=== PATIENT | female | born 1970 | race Caucasian/White ===

== ENCOUNTER 2017-10-10 03:38 | Emergency (ER) | payer BC, OTHER ==
[2017-10-10 03:39] VITALS: BMI 24.7
--- NOTE | 2017-10-10 04:29 | ED PDOC ---
Arrival/HPI - General Chief Complaint: Abdominal Pain Time Seen by Provider: 10/10/17 04:05 Historian: Patient - History of Present Illness Narrative History of Present Illness (Text): 10/10/17 04:29 A 47 year old female, with no significant past medical history, presents to the emergency department complaining of right sided abdominal pain. The patient states that the pain began yesterday morning. It was an abrupt onset and not associated with nausea, vomiting, diarrhea . The patient states that she had a sandwich earlier in the day. The patient denies fevers, chills, headache, dizziness, chest pain, shortness of breath, dyspnea on exertion, cough, back pain, neck pain, urinary/bowel changes, or any other complaint. Time/Duration: Other (Yesterday morning) Symptom Onset: Sudden Symptom Course: Unchanged Activities at Onset: Rest, Light Context: Home Past Medical History - Provider Review Nursing Documentation Reviewed: Yes - Infectious Disease Hx of Infectious Diseases: None - Tetanus Immunization Tetanus Immunization: Up to Date - Past Medical History Past Medical History: No Previous - Cardiac Hx Cardiac Disorders: No Hx Hypertension: Yes - Pulmonary Hx Tuberculosis: No - Neurological HX Cerebrovascular Accident: No Hx Seizures: No - Hematological/Oncological Hx Cancer: No - Genitourinary/Gynecological Hx Sexually Transmitted Diseases: No - Psychiatric Hx Emotional Abuse: No Hx Physical Abuse: No Hx Substance Use: No - Past Surgical History Past Surgical History: Non-Contributing - Suicidal Assessment Feels Threatened In Home Enviroment: Yes Family/Social History - Physician Review Nursing Documentation Reviewed: Yes Family/Social History: No Known Family HX Smoking Status: Never Smoked Hx Alcohol Use: No Hx Substance Use: No Hx Substance Use Treatment: No Allergies/Home Meds Allergies/Adverse Reactions: Allergies No Known Allergies Allergy (Verified 10/10/17 03:55) Home Medications: Home Meds Medication Instructions Recorded Confirmed No Known Home Med 10/10/17 10/10/17 Review of Systems - Physician Review All systems were reviewed & negative as marked: Yes - Review of Systems Constitutional: absent: Fevers, Night Sweats Respiratory: absent: SOB, Cough Cardiovascular: absent: Chest Pain, DE JESUS Gastrointestinal: Abdominal Pain. absent: Stool Changes, Diarrhea, Nausea, Vomiting Genitourinary Female: absent: Urine Output Changes Musculoskeletal: absent: Back Pain, Neck Pain Neurological: absent: Headache, Dizziness Physical Exam Vital Signs Reviewed: Yes Vital Signs Temp Pulse Resp BP Pulse Ox 10/10/17 05:54 96 H 20 143/93 H 96 10/10/17 03:48 97.7 F 84 18 139/109 H 100 Temperature: Afebrile Blood Pressure: Hypertensive Pulse: Regular Respiratory Rate: Normal Appearance: Positive for: Well-Appearing, Non-Toxic, Comfortable Pain Distress: None Mental Status: Positive for: Alert and Oriented X 3 - Systems Exam Head: Present: Atraumatic, Normocephalic Pupils: Present: PERRL Extroacular Muscles: Present: EOMI Conjunctiva: Present: Normal Mouth: Present: Moist Mucous Membranes Neck: Present: Normal Range of Motion Respiratory/Chest: Present: Clear to Auscultation, Good Air Exchange. No: Respiratory Distress, Accessory Muscle Use Cardiovascular: Present: Regular Rate and Rhythm, Normal S1, S2. No: Murmurs Abdomen: Present: Tenderness (Abdomen soft. Tender to right upper and right lower abdomen. ). No: Distention, Peritoneal Signs Back: Present: Normal Inspection Upper Extremity: Present: Normal Inspection. No: Cyanosis, Edema Lower Extremity: Present: Normal Inspection. No: Edema Neurological: Present: GCS=15, CN II-XII Intact, Speech Normal Skin: Present: Warm, Dry, Normal Color. No: Rashes Psychiatric: Present: Alert, Oriented x 3, Normal Insight, Normal Concentration Medical Decision Making ED Course and Treatment: 10/10/17 04:33 Impression: A 47 year old female presents to the emergency department complaining of right sided abdominal pain since yesterday morning. Plan: -- Abdominal Ultrasound -- Urinalysis -- Labs -- IV Fluids and Toradol -- Reassess and disposition Progress Notes: 10/10/17 07:00 Case was endorsed to /pending CT Abd/Pelvis/reassess/final disposition - Lab Interpretations Lab Results: 10/10/17 04:22 10/10/17 04:22 Lab Results 10/10/17 04:22: WBC 15.9 H, RBC 4.43, Hgb 13.1, Hct 37.6, MCV 84.9, MCH 29.6, MCHC 34.8, RDW 13.0, Plt Count 259, MPV 10.8 10/10/17 04:22: Sodium 141, Potassium 3.5 L, Chloride 103, Carbon Dioxide 27, Anion Gap 14, BUN 12, Creatinine 0.7, Est GFR ( Amer) > 60, Est GFR (Non- Af Amer) > 60, Random Glucose 111 H, Calcium 9.6, Total Bilirubin 0.2, AST 20, ALT 20, Alkaline Phosphatase 38, Total Protein 7.6, Albumin 4.0, Globulin 3.6, Albumin/Globulin Ratio 1.1, Lipase 156 10/10/17 04:05: Urine Color Yellow, Urine Appearance Clear, Urine pH 6.0, Ur Specific [place] 1.025, Urine Protein Negative, Urine Glucose (UA) Negative, Urine Ketones Negative, Urine Blood Moderate H, Urine Nitrate Negative, Urine Bilirubin Negative, Urine Urobilinogen 0.2, Ur Leukocyte Esterase Negative, Urine RBC 1 - 3, Urine WBC 0 - 2, Ur Epithelial Cells 0 - 2, Urine Bacteria Rare I have reviewed the lab results: Yes - RAD Interpretation Narrative RAD Interpretations (Text): 10/10/17 06:45 Abdominal U/S IMPRESSION: No cholelithiasis or acute cholecystitis. Mild fullness of the right collecting system. CT of the abdomen and pelvis could be obtained for further evaluation. Radiology Orders: 10/10/17 04:21 ABDOMEN COMPLETE [US] Stat 10/10/17 06:46 ABD & PELVIS IV CONTRAST ONLY [CT] Stat Upholsterer Apprentice: Radiologist - Medication Orders Current Medication Orders: Discontinued Medications Sodium Chloride (Sodium Chloride 0.9%) 1,000 mls @ 999 mls/hr IV .Q1H1M STA Stop: 10/10/17 05:20 Last Admin: 10/10/17 05:49 Dose: 999 mls/hr eMAR Start Stop Document 10/10/17 05:49 KRISTEL (Rec: 10/10/17 05:49 KRISTEL [id number]) Intravenous Solution Start Date 10/10/17 Start Time 04:35 End Date 10/10/17 End time 05:45 Total Infusion Time 70 Ketorolac Tromethamine (Toradol) 30 mg IVP ONCE ONE Stop: 10/10/17 04:21 Last Admin: 10/10/17 04:36 Dose: 30 mg MAR Pain Assessment Document 10/10/17 04:36 IT (Rec: 10/10/17 04:36 IT [id number]) Pain Reassessment Is this a pain reassessment? No Sleep Is patient sleeping during reassessment? No Presence of Pain Presence of Pain Yes Pain Scale Used Pain Scale Used Numeric Location Left, Right or Bilateral Bilateral Pain Location Body Site Abdomen IVP Administration Document 10/10/17 04:36 IT (Rec: 10/10/17 04:36 IT [id number]) Charges for Administration # of IVP Administrations 1 Morphine Sulfate (Morphine) 2 mg IVP STAT STA Stop: 10/10/17 05:30 Last Admin: 10/10/17 05:48 Dose: 2 mg MAR Pain Assessment Document 10/10/17 05:48 KRISTEL (Rec: 10/10/17 05:48 KRISTEL [id number]) Pain Reassessment Is this a pain reassessment? Yes Sleep Is patient sleeping during reassessment? No Presence of Pain Presence of Pain Yes Location Upper or Lower Lower Pain Location Body Site Abdomen IVP Administration Document 10/10/17 05:48 KRISTEL (Rec: 10/10/17 05:48 KRISTEL [id number]) Charges for Administration # of IVP Administrations 1 - Scribe Statement The provider has reviewed the documentation as recorded by the Fredibmeseret Whalen Provider Scribe Attestation: All medical record entries made by the Scribe were at my direction and personally dictated by me. I have reviewed the chart and agree that the record accurately reflects my personal performance of the history, physical exam, medical decision making, and the department course for this patient. I have also personally directed, reviewed, and agree with the discharge instructions and disposition. Disposition/Present on Arrival - Present on Arrival Any Indicators Present on Arrival: No History of DVT/PE: No History of Uncontrolled Diabetes: No Urinary Catheter: No History of Decub. Ulcer: No History Surgical Site Infection Following: None - Disposition Have Diagnosis and Disposition been Completed?: No Diagnosis: Abdominal pain Disposition Time: 07:00 Condition: GOOD Forms: [employer] ([place])
[2017-10-10] MEDS: Sodium Chloride 0.9% 1,000 ML IV STA ×2 (04:36→05:49)
[2017-10-10 04:44] LABS: URINE BILIRUBIN NEGATIVE (NEGATIVE); URINE BLOOD MODERATE (NEGATIVE); URINE GLUCOSE (UA) NEGATIVE (NEGATIVE); URINE LEUKOCYTE ESTERASE NEGATIVE Leu/uL (NEGATIVE); URINE PROTEIN NEGATIVE mg/dL (<30 mg/dL); URINE UROBILINOGEN 0.2 E.U./dL (<1 E.U./dL)
[2017-10-10 04:46] LABS: HEMOGLOBIN 13.1 g/dL (12.0-16.0); MEAN CELL VOLUME 84.9 fl (80.0-105.0); MEAN CORPUSCULAR HEMOGLOBIN 29.6 pg (25.0-35.0); MEAN CORPUSCULAR HGB CONC 34.8 g/dl (31.0-37.0); MEAN PLATELET VOLUME 10.8 fl (7.0-11.0); RBC 4.43 10^6/uL (3.5-6.1); WHITE BLOOD COUNT 15.9 10^3/ul (4.5-11.0)
[2017-10-10 04:48] LABS: URINE APPEARANCE CLEAR (CLEAR); URINE COLOR YELLOW (YELLOW)
[2017-10-10 04:51] LABS: ALB/GLOB RATIO 1.1 (1.1-1.8); ALT/SGPT 20 U/L (7-56); AST/SGOT 20 U/L (14-36); BLOOD UREA NITROGEN 12 mg/dL (7-21); CALCIUM 9.6 mg/dL (8.4-10.5); GFR AFRICAN-AMERICAN > 60; GFR NON-AFRICAN AMERICAN > 60; LIPASE 156 U/L (23-300)
[2017-10-10 04:56] LABS: URINE BACTERIA RARE (NEG); URINE EPITHELIAL CELLS 0 - 2 /hpf (0-5); URINE WBC 0 - 2 /hpf (0-6)
--- NOTE | 2017-10-10 06:39 | US ---
EXAM: US Abdomen Complete CLINICAL HISTORY: 47 years old, female; Pain; Abdominal pain; Generalized; Additional info: Right sided abdominal pain TECHNIQUE: Real-time ultrasound of the abdomen (complete) with image documentation. COMPARISON: No relevant prior studies available. FINDINGS: Liver: Unremarkable. No mass. No intrahepatic bile duct dilation. Gallbladder: Unremarkable. No gallstones. Negative sonographic Valentine's sign. Normal gallbladder wall measuring 2 mm. Common bile duct: Unremarkable as visualized measuring 4 mm. No stones. No dilation. Pancreas: Unremarkable as visualized. The tail is not well-visualized. Kidneys: The right kidney measures 10.2 cm and the left kidney measures 11.8 cm. There is mild fullness of the right collecting system. No stones. No solid mass. Spleen: Unremarkable. No splenomegaly. Aorta: Unremarkable. No aneurysm. Inferior vena cava: Unremarkable. IMPRESSION: No cholelithiasis or acute cholecystitis. Mild fullness of the right collecting system. CT of the abdomen and pelvis could be obtained for further evaluation.
[2017-10-10] MEDS ORDERED: Iohexol 350 MG/100 ML VIAL ONE (06:58)
--- NOTE | 2017-10-10 07:06 | ED PDOC ---
Physical Exam Vital Signs Temp Pulse Resp BP Pulse Ox 10/10/17 05:54 96 H 20 143/93 H 96 10/10/17 03:48 97.7 F 84 18 139/109 H 100 Medical Decision Making ED Course and Treatment: 10/10/17 07:00 Case signed out to me by Dr. Escobar. Patient is a 47 year old female, with no significant past medical history, who presents to the emergency department complaining of right sided abdominal pain since one day ago. Currently pending CT scan. 10/10/17 07:55 CT abdomen and pelvis: FINDINGS: Liver: Unremarkable. No mass. No intrahepatic bile duct dilation. Gallbladder: Unremarkable. No gallstones. Negative sonographic Valentine's sign. Normal gallbladder wall measuring 2 mm. Common bile duct: Unremarkable as visualized measuring 4 mm. No stones. No dilation. Pancreas: Unremarkable as visualized. The tail is not well-visualized. Kidneys: The right kidney measures 10.2 cm and the left kidney measures 11.8 cm. There is mild fullness of the right collecting system. No stones. No solid mass. Spleen: Unremarkable. No splenomegaly. Aorta: Unremarkable. No aneurysm. Inferior vena cava: Unremarkable. IMPRESSION: No cholelithiasis or acute cholecystitis. Mild fullness of the right collecting system. CT of the abdomen and pelvis could be obtained for further evaluation. 10/10/17 13:43 pt reassesed states pain improved. pt reports h/o of kidney stone. possible passed stone. pt notified of leukocytosis. advise close outpt fu and return precautions - Lab Interpretations Lab Results: 10/10/17 04:22 10/10/17 04:22 Lab Results 10/10/17 04:22: WBC 15.9 H, RBC 4.43, Hgb 13.1, Hct 37.6, MCV 84.9, MCH 29.6, MCHC 34.8, RDW 13.0, Plt Count 259, MPV 10.8 10/10/17 04:22: Sodium 141, Potassium 3.5 L, Chloride 103, Carbon Dioxide 27, Anion Gap 14, BUN 12, Creatinine 0.7, Est GFR ( Amer) > 60, Est GFR (Non- Af Amer) > 60, Random Glucose 111 H, Calcium 9.6, Total Bilirubin 0.2, AST 20, ALT 20, Alkaline Phosphatase 38, Total Protein 7.6, Albumin 4.0, Globulin 3.6, Albumin/Globulin Ratio 1.1, Lipase 156 10/10/17 04:05: Urine Color Yellow, Urine Appearance Clear, Urine pH 6.0, Ur Specific [place] 1.025, Urine Protein Negative, Urine Glucose (UA) Negative, Urine Ketones Negative, Urine Blood Moderate H, Urine Nitrate Negative, Urine Bilirubin Negative, Urine Urobilinogen 0.2, Ur Leukocyte Esterase Negative, Urine RBC 1 - 3, Urine WBC 0 - 2, Ur Epithelial Cells 0 - 2, Urine Bacteria Rare - RAD Interpretation Radiology Orders: 10/10/17 04:21 ABDOMEN COMPLETE [US] Stat 10/10/17 06:46 ABD & PELVIS IV CONTRAST ONLY [CT] Stat - Medication Orders Current Medication Orders: Discontinued Medications Sodium Chloride (Sodium Chloride 0.9%) 1,000 mls @ 999 mls/hr IV .Q1H1M STA Stop: 10/10/17 05:20 Last Admin: 10/10/17 05:49 Dose: 999 mls/hr eMAR Start Stop Document 10/10/17 05:49 KRISTEL (Rec: 10/10/17 05:49 KRISTEL [id number]) Intravenous Solution Start Date 10/10/17 Start Time 04:35 End Date 10/10/17 End time 05:45 Total Infusion Time 70 Ketorolac Tromethamine (Toradol) 30 mg IVP ONCE ONE Stop: 10/10/17 04:21 Last Admin: 10/10/17 04:36 Dose: 30 mg MAR Pain Assessment Document 10/10/17 04:36 IT (Rec: 10/10/17 04:36 IT [id number]) Pain Reassessment Is this a pain reassessment? No Sleep Is patient sleeping during reassessment? No Presence of Pain Presence of Pain Yes Pain Scale Used Pain Scale Used Numeric Location Left, Right or Bilateral Bilateral Pain Location Body Site Abdomen IVP Administration Document 10/10/17 04:36 IT (Rec: 10/10/17 04:36 IT [id number]) Charges for Administration # of IVP Administrations 1 Morphine Sulfate (Morphine) 2 mg IVP STAT STA Stop: 10/10/17 05:30 Last Admin: 10/10/17 05:48 Dose: 2 mg MAR Pain Assessment Document 10/10/17 05:48 KRISTEL (Rec: 10/10/17 05:48 KRISTEL [id number]) Pain Reassessment Is this a pain reassessment? Yes Sleep Is patient sleeping during reassessment? No Presence of Pain Presence of Pain Yes Location Upper or Lower Lower Pain Location Body Site Abdomen IVP Administration Document 10/10/17 05:48 KRISTEL (Rec: 10/10/17 05:48 KRISTEL [id number]) Charges for Administration # of IVP Administrations 1 - Scribe Statement The provider has reviewed the documentation as recorded by the Scribe Pily Kruger Provider Scribe Attestation: All medical record entries made by the Scribe were at my direction and personally dictated by me. I have reviewed the chart and agree that the record accurately reflects my personal performance of the history, physical exam, medical decision making, and the department course for this patient. I have also personally directed, reviewed, and agree with the discharge instructions and disposition. Disposition/Present on Arrival - Present on Arrival Any Indicators Present on Arrival: No History of DVT/PE: No History of Uncontrolled Diabetes: No Urinary Catheter: No History of Decub. Ulcer: No History Surgical Site Infection Following: None - Disposition Have Diagnosis and Disposition been Completed?: Yes Diagnosis: Abdominal pain, Leukocytosis Disposition: HOME/ ROUTINE Disposition Time: 09:00 Condition: STABLE Discharge Instructions (ExitCare): Acute Abdomen (Belly Pain), White Blood Cell Count Differential Test Additional Instructions: please discuss results of your lab work and imaging studies with your doctor. you may need repeat lab work and further workup as an outpatient. Prescriptions: Naproxen 500 mg PO BID PRN #14 tablet PRN Reason: Pain, Mild (1-3) Referrals: Tony Dawson MD [Staff Provider] - Follow up with primary Forms: [employer] (Greek)
--- NOTE | 2017-10-10 07:53 | CT ---
EXAM: CT Abdomen and Pelvis With Intravenous Contrast CLINICAL HISTORY: 47 years old, female; Pain; Abdominal pain; Acute TECHNIQUE: Axial computed tomography images of the abdomen and pelvis with intravenous contrast. All CT scans at this facility use one or more dose reduction techniques, viz.: automated exposure control; ma/kV adjustment per patient size (including targeted exams where dose is matched to indication; i.e. head); or iterative reconstruction technique. Coronal and sagittal reformatted images were created and reviewed. CONTRAST: 100 mL of omnipaque 350 administered intravenously. COMPARISON: US - ABDOMEN COMPLETE 2017-10-10 04:42 FINDINGS: Lung bases: Unremarkable. No mass. No consolidation. ABDOMEN: Liver: Unremarkable. No mass. Gallbladder and bile ducts: Unremarkable. No calcified stones. No ductal dilation. Pancreas: Unremarkable. No mass. No ductal dilation. Spleen: Unremarkable. No splenomegaly. Adrenals: Unremarkable. No mass. Kidneys and ureters: There is a focal right renal hypodensity that cannot be further characterized on the current examination. There is a focal left renal hypodensity that cannot be further characterized on the current examination. There are two calcifications in the left midpole measuring 2mm and 3 mm. Mild fullness of the collecting system bilaterally. No significant hydroureter or evidence of distal ureteral stone. Stomach and bowel: No obstruction. No mucosal thickening. The right colon is mildly distended with moderate amount of retained stool.There is no wall thickening or pericolonic stranding to suggest colitis. Appendix: No findings to suggest acute appendicitis. Normal appendix. PELVIS: Bladder: Decompressed bladder. Reproductive: Unremarkable as visualized. ABDOMEN and PELVIS: Intraperitoneal space: There is a small amount of free pelvic fluid present. No free air. Bones/joints: No acute fracture. No dislocation. Soft tissues: Unremarkable. Vasculature: Unremarkable. No abdominal aortic aneurysm. Lymph nodes: Unremarkable. No enlarged lymph nodes. IMPRESSION: Mild fullness of the collecting system bilaterally without evidence of a distal ureteral stone. Left nephrolithiasis. Small physiologic pelvic free fluid. Too small to characterize low-density renal lesions bilaterally, probable cysts. No followup necessary.
[2017-10-10] MEDS ORDERED: Naproxen 550 mg Tab PO STA (08:02)
[2017-10-10 08:22] VITALS: BP 137/70; PULSE 72; RESP 18; TEMP 98.5; O2SAT 98
== END 2017-10-10 08:23 | disposition home or self-care (01) ==
LOC: ED 03:38
DX: D72.829 Elevated white blood cell count, unspecified (principal); R10.9 Unspecified abdominal pain; I10 Essential (primary) hypertension
CPT/HCPCS: 74177; 76700; 80053; 81001; 83690; 85027; 96361; 96374; 96375; 99284; J1885; J2270; J7040; Q9967